=== PATIENT | male | born 1935 | race Hispanic/Latino ===

== ENCOUNTER 2018-12-10 12:30 | Emergency (ER) | payer OTHER ==
[~2018-12-10] VITALS: Ht 165.1 cm; Wt 63.5 kg
== END 2018-12-10 13:02 | disposition home or self-care (01) ==
LOC: ER 12:30
DX: N50.9 Disorder of male genital organs, unspecified (principal); N50.812 Left testicular pain; N50.811 Right testicular pain; S30.22XA Contusion of scrotum and testes, initial encounter; E11.9 Type 2 diabetes mellitus without complications; I25.10 Atherosclerotic heart disease of native coronary artery without angina pectoris; M54.9 Dorsalgia, unspecified; G89.29 Other chronic pain
CPT/HCPCS: 99282

== ENCOUNTER 2018-12-17 16:54 | Emergency (ER) | payer OTHER ==
[~2018-12-17] VITALS: Ht 165.1 cm; Wt 63.5 kg
--- OUTSIDE RECORDS SUMMARY | 2018-12-17 16:56 | XMS REPORT | Continuity of Care Document ---
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 Hg) 124 07/28/2013 [facility] Diastolic (mm Hg) 70 07/28/2013 [facility] Temperature Oral (F) 98.8 F 07/28/2013 [facility] Respitory Rate 20 07/28/2013 [facility] Systolic (mm Hg) 161 07/28/2013 [facility] Temperature Oral (F) 98.0 F 07/28/2013 [facility] Heart Rate 92 07/28/2013 [facility] Diastolic (mm Hg) 73 07/28/2013 [facility] Encounters Location Location Details Encounter Type Encounter Number Reason For Visit Attending Provider ADM Date DC Date Status Source [facility] [id number] _[id number] Saadia Herman 07/28/2013 07/28/2013 [facility] [id number] Yung Guille 03/11/2014 03/11/2014 [facility] Outpatient [id number] DAVID ANTONIO 01/12/2015 [facility] [id number] NURSE VISIT 02/07/2015 Active [facility] [id number] EFE RAMSAY 02/22/2015 Active [facility] [id number] DAVID ANTONIO 03/27/2015 Active [facility] [id number] DAVID ANOTNIO 06/27/2015 Active [facility] [id number] ZHIHAO PACO 09/25/2015 Active [facility] Outpatient [id number] ZHJARONAO PACO 12/26/2015 Active [facility] Outpatient [id number] NURSE VISIT 01/30/2016 Active [facility] [id number] DAVID ANTONIO 03/26/2016 Active [facility] [id number] FLORENTINAO PACO 03/27/2016 Active [facility] [id number] DAVID ANTONIO 05/13/2016 Active [facility] [id number] DAVID ANTONIO 05/27/2016 Active [facility]patient [id number] DAVID ANTONIO 07/02/2016 Active [facility] [id number] DAVID ANTONIO 09/12/2016 [facility] [id number] DAVID ANTONIO 10/01/2016 Active [facility] [id number] DAVID ANTONIO 12/31/2016 Active [facility] [id number] DAVID ANTONIO 01/07/2017 Active [facility] Outpatient [id number] NURSE VISIT 02/19/2017 Active [facility] [id number] DAVID ANTONIO 04/03/2017 Active [facility] [id number] DAVID ANTONIO 05/13/2017 Active [facility] Outpatient [id number] David Antonio 05/13/2017 05/14/2017 [facility] Out[facility] [id number] DAVID ANTONIO 07/08/2017 [facility] Outpatient [id number] David Antonio 07/08/2017 07/09/2017 [facility] [id number] Elkin Aguilar 10/06/2017 10/07/2017 [facility] Phone Message [id number] 10/07/2017 10/09/2017 [facility] Outpatient [id number] DAVID ANTONIO 10/14/2017 Active [facility] Outpatient [id number] David Antonio 10/14/2017 10/15/2017 [facility] Outpatient [id number] DAVID ANTONIO 10/21/2017 Active [facility] Phone Message [id number] 10/21/2017 10/23/2017 [facility] Outpatient [id number] David Antonio 10/21/2017 10/22/2017 [facility] Outpatient [id number] DAVID ANTONIO 11/18/2017 Active [facility] Outpatient [id number] David Antonio 11/18/2017 11/19/2017 [facility] Primary [facility] Phone Message [id number] 01/07/2018 01/09/2018 [facility] Phone Message [id number] 01/21/2018 01/23/2018 [facility] Outpatient [id number] DAVID ANTONIO 02/18/2018 Active [facility] Outpatient [id number] David Antonio 02/18/2018 02/19/2018 [facility] Outpatient [id number] DAVID ANTONIO 06/03/2018 Active [facility] Outpatient [id number] DAVID ANTONIO 08/11/2018 Active [facility] Outpatient [id number] David Antonio 08/11/2018 08/12/2018 [facility] Outpatient [id number] David Antonio 09/02/2018 Active [facility] Outpatient [id number] David Antonio 09/02/2018 09/03/2018 [facility] Outpatient [id number] David Antonio 11/10/2018 Active [facility] Outpatient [id number] David Antonio 11/10/2018 11/11/2018 [facility] Emergency [id number] Elkin Sheikh 12/08/2018 12/08/2018 [facility] Departed Emergency Room [id number] MARILUZ BETANCUR MD 12/10/2018 12/10/2018 [facility] Outpatient [id number] David Antonio 12/14/2018 Active [facility] Outpatient [id number] David Antonio 12/14/2018 12/15/2018 [facility] Procedures Procedure Code Date Perfomer Comments Source Diabetic retinal eye exam<sup>1, 2</sup> [id number] 07/06/2017 Office Visit - 08/10/17office visit 09/14/17 [facility] Diabetic retinal eye exam<sup>1, 2, 3, 4, 5, 6, 7</sup> 636921913 07/06/2017 office visit - 02/11/18office visit - 04/01/18office visit - 04/29/18Office Visit - 08/10/17office visit 09/14/17office visit - 11/05/17office visit - 11/02/17 [facility] Diabetic retinal eye exam<sup>1</sup> 238497571 07/06/2017 Office Visit - 08/10/17 [facility] Diabetic retinal eye exam<sup>1, 2, 3, 4</sup> 579776571 07/06/2017 Office Visit - 08/10/17office visit 09/14/17office visit - 11/05/17office visit - 11/02/17 [facility] Diabetic retinal eye exam<sup>1, 2</sup> 208949934 07/06/2017 Office Visit - 08/10/17office visit 09/14/17 [facility] Diabetic retinal eye exam<sup>1, 2, 3, 4, 5, 6, 7</sup> 126264571 07/06/2017 office visit - 02/11/18office visit - 04/01/18office visit - 04/29/18Office Visit - 08/10/17office visit 09/14/17office visit - 11/05/17office visit - 11/02/17 [facility] Diabetic retinopathy screening<sup>3, 4, 5, 6, 7</sup> 767869707 06/23/2016 office visit - 11/12/16office visit -11/27/16 Dr. Dalal visit - 01/15/17office visit - 03/09/17office visit - 03/30/17 [facility] Diabetic retinopathy screening<sup>8, 9, 10, 11, 12</sup> 328372160 06/23/2016 office visit - 11/12/16office visit -11/27/16 Dr. Diazoffkenzie visit - 01/15/17office visit - 03/09/17office visit - 03/30/17 [facility] Diabetic retinopathy screening<sup>1, 2, 3, 4, 5</sup> 571763425 06/23/2016 office visit - 11/12/16office visit -11/27/16 Dr. Dalal visit - 01/15/17office visit - 03/09/17office visit - 03/30/17 [facility] Diabetic retinopathy screening<sup>2, 3, 4, 5, 6</sup> 194084650 06/23/2016 office visit - 11/12/16office visit -11/27/16 Dr. Dalal visit - 01/15/17office visit - 03/09/17office visit - 03/30/17 [facility] Diabetic retinopathy screening<sup>5, 6, 7, 8, 9</sup> 114826988 06/23/2016 office visit - 11/12/16office visit -11/27/16 Dr. Dalal visit - 01/15/17office visit - 03/09/17office visit - 03/30/17 [facility] Diabetic retinopathy screening<sup>3, 4, 5, 6, 7</sup> 304819275 06/23/2016 office visit - 11/12/16office visit -11/27/16 Dr. Dalal visit - 01/15/17office visit - 03/09/17office visit - 03/30/17 [facility] Diabetic retinopathy screening<sup>8, 9, 10, 11, 12</sup> 941056065 06/23/2016 office visit - 11/12/16office visit -11/27/16 Dr. Dalal visit - 01/15/17office visit - 03/09/17office visit - 03/30/17 [facility] Diabetic foot examination 954918022 06/27/2015 [facility] Diabetic foot examination 843602204 06/27/2015 [facility] Colonoscopy [id number] 09/24/2010 [facility] Colonoscopy [id number] 09/24/2010 [facility] CABG x 4 - Coronary artery bypass grafts x 4 [id number] [facility] Insertion of coronary artery stent [id number] [facility] Appendectomy [id number] [facility] CABG x 4 - Coronary artery bypass grafts x 4 [id number] [facility] Cataract surgery<sup>8</sup> [id number] both [facility] Cholecystectomy<sup>9</sup> 30513991 [facility] Insertion of coronary artery stent [id number] [facility] Cataract surgery<sup>13</sup> [id number] [facility] Cholecystectomy<sup>14</sup> 30764255 [facility] Cataract surgery<sup>6</sup> [id number] [facility] Cholecystectomy<sup>7</sup> 62331062 [facility] Cataract surgery<sup>7</sup> [id number] [facility] Cholecystectomy<sup>8</sup> 71148395 [facility] Cataract surgery<sup>10</sup> [id number] [facility] Cholecystectomy<sup>11</sup> 18722667 [facility] Appendectomy [id number] [facility] Cataract surgery<sup>8</sup> 770043639 both eyes [facility] Cholecystectomy<sup>9</sup> 01737513 1979 [facility] Cataract surgery<sup>13</sup> [id number] both eyes [facility] Cholecystectomy<sup>14</sup> 37642650 1979 [facility] Assessment and Plan No Data Provided for This Section Plan of Care Plan of Care Date Source Discharge Date 12/10/18 1:02pm Disposition HOME, SELF-CARE Condition at Discharge Stable Forms Provided Work/School Excuse Prescriptions See Medication Section Referrals David Antonio ORI MD Address: [address] [place] [address] [id number] Additional Instructions/Education Diagnosis: scrotal hematoma 1. follow up wiht your doctor in 1-2 days without fail 2. return to ed as needed 12/10/2018 [facility] Social History Social History Date Source Social History TypeResponse Substance Abuse Use: None. Alcohol Current, Type Beer.1 Smoking Status Former smoker; Exposure to Tobacco Smoke None; Cigarette Smoking Last 365 Days No; Reg Smoking Cessation Counseling No2 entered on: 12/14/18 [id number] stated 10, year quit 1959 was smoking 2 packs / day 12/14/2018 [facility] Smoking Status Start Date Stop Date Former smoker 12/10/2018 [facility] Social History TypeResponse Substance Abuse Use: None. Alcohol Current, Type Beer.1 Smoking Status Former smoker; Exposure to Tobacco Smoke None; Cigarette Smoking Last 365 Days No; Reg Smoking Cessation Counseling No2 entered on: 12/08/18 [id number] stated 10, year quit 1960 was smoking 2 packs / day 11/10/2018 [facility] Family History No Data Provided for This Section Advance Directives Order Name Results Value Date Source Advance Directives Advance Directives Directive Response Recorded Date/Time Does the patient have an advance directive? No 12/10/18 12:33pm If not on file with [facility] will patient provide a copy? No 12/10/18 12:33pm Do you have a Directive to Physician? No 12/10/18 12:33pm Do you have a Medical Power of Blow Torch Operator? No 12/10/18 12:33pm Do you have an out of hospital Do Not Resuscitate Order? No 12/10/18 12:33pm Do you have any special needs we should be aware of? No 12/10/18 12:33pm Do you have a support person here with you today? Yes 12/10/18 1:16pm Did patient receive Notice of Privacy Practices? Yes 12/10/18 1:16pm Did patient receive patient rights and responsibilities? Yes 12/10/18 1:16pm 12/10/2018 [facility] Functional Status No Data Provided for This Section
--- OUTSIDE RECORDS SUMMARY | 2018-12-17 16:56 | XMS REPORT | Summary of Care ---
Author Author [facility] Organization [facility] Address Unknown Phone Unavailable Encounter DG Ordonez(TOMEKA) [id number] Date(s): 05/13/17 - 05/13/17 [facility] [address] [facility] [address], [address] [place], [place] [address]- [phone] Discharge Disposition: Home or Self Care Attending Physician: David Beverly MD Vital Signs Most recent to 1 oldest [Reference Range]: Height 165.1 cm (05/13/17 8:52 AM) Temperature Oral 97.8 DegF [96.4-99.1 DegF] (05/13/17 8:52 AM) Blood Pressure 140/76 mmHg [90-140/60-90 mmHg] (05/13/17 8:52 AM) Respiratory Rate 14 BRMIN [14-20 BRMIN] (05/13/17 8:52 AM) Peripheral Pulse 84 bpm Rate [60-100 bpm] (05/13/17 8:52 AM) Weight 66.08 kg (05/13/17 8:52 AM) Body Mass Index 24.24 m2 (05/13/17 8:52 AM) Problem List Condition Effective Dates Status Health Status Informant Benign essential Active hypertension(Confirm ed)1 Benign prostatic Active hyperplasia(Confirme d)2 Chronic obstructive Active lung disease(Confirmed)3 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 2Data migrated from [employer] on 10/21/14. 3Data migrated from [employer] on 10/21/14. 4Data migrated from [employer] on 10/21/14. 5Data migrated from [employer] on 12/09/14. 6Data migrated from [employer] on 10/21/14. 7Data migrated from [employer] on 10/21/14. 8Data migrated from [employer] on 10/21/14. 9Data migrated from [employer] on 10/21/14. 10Data migrated from [employer] on 10/21/14. 11Data migrated from [employer] on 10/21/14. Allergies, Adverse Reactions, Alerts Substance Reaction Severity Status NKDA Active Medications azithromycin 250 mg oral tablet See Instructions, Take 2 tablets by mouth the first day then 1 tablet by mouth d aily on days 2-5., X 5 day, # 6 tab, 0 Refill(s), Pharmacy: [facility]/pharmacy #[id number] Start Date: 05/13/17 Stop Date: 05/18/17 Status: Ordered TamiFLU 75 mg oral capsule 75 mg, PO, Q12H, X 5 day, # 10 cap, 0 Refill(s), Pharmacy: [facility]/pharmacy #[id number] Start Date: 05/13/17 Stop Date: 05/18/17 Status: Ordered Results No data available for this section Immunizations Given and Recorded Vaccine Date Status Refusal Reason influenza virus vaccine, inactivated1 02/19/17 Given influenza virus vaccine, inactivated 01/30/16 Given influenza virus vaccine, inactivated 02/07/15 Given influenza virus vaccine, inactivated2 02/02/14 Given influenza virus vaccine, inactivated3 02/17/13 Given Hx influenza vaccine-unspecified4 02/02/14 Given 1Result Comment: Patient waited 15 minutes, no allergic reaction. 2Result Comment: fluzone high dose [[id number]]. Migrated from OBS ; Data migrated from [employer] on 06/26/2015. 3Result Comment: fluzone (>3 yrs.) [[id number]]. Migrated from OBS ; Data migrated from [employer] on 06/26/2015. 4Result Comment: done. Migrated from OBS ; Data migrated from [employer] on 06/26/2015. Procedures Procedure Date Related Diagnosis Body Site Diabetic retinopathy screening1, 2, 3, 4, 5 06/23/16 Diabetic foot examination 06/27/15 Colonoscopy 09/24/10 Appendectomy CABG x 4 - Coronary artery bypass grafts x 4 Cataract surgery6 Cholecystectomy7 Insertion of coronary artery stent 1office visit - 11/12/16 2office visit -11/27/16 Dr. Diaz 3office visit - 01/15/17 4office visit - 03/09/17 5office visit - 03/30/17 6both eyes [id number] Social History Social History Type Response Substance Abuse Use: None. Alcohol Current, Type Beer.1 Smoking Status Former smoker; Exposure to Tobacco Smoke None; Cigarette Smoking Last 365 Days No; Reg Smoking Cessation Counseling No2 1socially 2age stated 8, year quit 1960 was smoking 2 packs / day Assessment and Plan No data available for this section
--- OUTSIDE RECORDS SUMMARY | 2018-12-17 16:57 | XMS REPORT | Summary of Care ---
Author Author [facility] Organization [facility] Address Unknown Phone Unavailable Encounter DG Ordonez(FIN) [id number] Date(s): 12/14/18 - 12/14/18 [facility] [address] [place] [address]- Discharge Disposition: Home or Self Care Attending Physician: David Beverly MD Vital Signs Most recent to 1 oldest [Reference Range]: Height 165.1 cm (12/14/18 10:40 AM) Temperature Oral 97.9 DegF [96.4-99.1 DegF] (12/14/18 10:40 AM) Blood Pressure 118/63 mmHg [90-140/60-90 mmHg] (12/14/18 10:40 AM) Respiratory Rate 14 BRMIN [14-20 BRMIN] (12/14/18 10:40 AM) Peripheral Pulse 62 bpm Rate [60-100 bpm] (12/14/18 10:40 AM) Weight 64.716 kg (12/14/18 10:40 AM) Body Mass Index 23.74 m2 (12/14/18 10:40 AM) Problem List Condition Effective Dates Status Health Status Informant Benign essential Active hypertension(Confirm ed)1 Benign prostatic Active hyperplasia(Confirme d)2 Chronic obstructive Active lung disease(Confirmed)3 Coronary 05/25/59 Active arteriosclerosis(Con firmed)4 Coronary artery Resolved bypass grafts x 45 DM (diabetes Resolved mellitus)(Confirmed) Diverticular disease Active of colon6 Hearing Active impairment(Confirmed ) History of - Active myocardial infarction(Confirmed )7 S/P CABG x Active 4(Confirmed) HLD Resolved (hyperlipidemia)(Con firmed) HTN Resolved (hypertension)(Confi rmed) Internal Active hemorrhoids8 Macrocytic 06/30/13 Active anemia(Confirmed)9 Macular Active edema(Confirmed) [place] - Myocardial Resolved infarction(Confirmed ) Peripheral nerve Active disease(Confirmed)10 DM Active retinopathy(Confirme d) Right bundle branch Active block(Confirmed)11 Bruise(Confirmed) Active 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 2Data migrated from [employer] [...] [employer] on 10/21/14. Allergies, Adverse Reactions, Alerts No Known Medication Allergies Substance Reaction Severity Status NKFA Active Medications No Known Medications Results No data available for this section Immunizations Given and Recorded Vaccine Date Status Refusal Reason influenza virus vaccine, inactivated1 02/18/18 Given influenza virus vaccine, inactivated2 02/19/17 Given influenza virus vaccine, inactivated 01/30/16 Given influenza virus vaccine, inactivated 02/07/15 Given influenza virus vaccine, inactivated3 02/02/14 Given influenza virus vaccine, inactivated4 02/17/13 Given Hx influenza vaccine-unspecified5 02/02/14 Given 1Result Comment: Patient waited 15 minutes, no allergic reaction noted. 2Result Comment: Patient waited 15 minutes, no allergic reaction. 3Result Comment: fluzone high dose [[id number]]. Migrated from OBS ; Data migrated from [employer] on 06/26/2015. 4Result Comment: fluzone (>3 yrs.) [[id number]]. Migrated from OBS ; Data migrated from [employer] on 06/26/2015. 5Result Comment: done. Migrated from OBS ; Data migrated from [employer] on 06/26/2015. Procedures Procedure Date Related Diagnosis Body Site Status Diabetic retinal eye exam1, 2, 3, 4, 5, 6, 7 07/06/17 Completed Diabetic retinopathy screening8, 9, 10, 11, 06/23/16 Completed 12 Diabetic foot examination 06/27/15 Completed Colonoscopy 09/24/10 Completed Appendectomy Completed CABG x 4 - Coronary artery bypass grafts x 4 Completed Cataract [id number] Completed [id number] Completed Insertion of coronary artery stent Completed 1office visit - 02/11/18 2office visit - 04/01/18 3office visit - 04/29/18 4Office Visit - 08/10/17 5office visit 09/14/17 6office visit - 11/05/17 7office visit - 11/02/17 8office visit - 11/12/16 9office visit -11/27/16 Dr. Diaz 10office visit - 01/15/17 11office visit - 03/09/17 12office visit - 03/30/17 13both eyes [id number] Social History Social History Type Response Substance Abuse Use: None. Alcohol Current, Type Beer.1 Smoking Status Former smoker; Exposure to Tobacco Smoke None; Cigarette Smoking Last 365 Days No; Reg Smoking Cessation Counseling No2 entered on: 12/14/18 1socially 2age stated 8, year quit 1959 was smoking 2 packs / day Assessment and Plan No data available for this section
--- OUTSIDE RECORDS SUMMARY | 2018-12-17 16:57 | XMS REPORT | Summary of Care ---
Author Author [facility] Primary [facility] Organization [facility] Address Unknown Phone Unavailable Encounter HQ Nicoletter_yumiko(FIN) [id number] Date(s): 10/14/17 - 10/14/17 [facility] [address], [address] [place] [address]- [phone] Discharge Disposition: Home or Self Care Attending Physician: David Beverly MD Vital Signs Most recent to 1 oldest [Reference Range]: Height 165.1 cm (10/14/17 10:51 AM) Temperature Oral 98.5 DegF [96.4-99.1 DegF] (10/14/17 10:51 AM) Blood Pressure 154/74 mmHg [90-140/60-90 mmHg] *HI* (10/14/17 10:51 AM) Respiratory Rate 14 BRMIN [14-20 BRMIN] (10/14/17 10:51 AM) Peripheral Pulse 85 bpm Rate [60-100 bpm] (10/14/17 10:51 AM) Weight 65 kg (10/14/17 10:51 AM) Body Mass Index 23.85 m2 (10/14/17 10:51 AM) Problem List Condition Effective Dates Status Health Status Informant Benign essential Active hypertension(Confirm ed)1 Benign prostatic Active hyperplasia(Confirme d)2 Chronic obstructive Active lung disease(Confirmed)3 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/25/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 arteriosclerosis(Con firmed)4 Coronary artery Resolved bypass grafts x 45 Diverticular disease Active of colon6 History of - Active myocardial infarction(Confirmed )7 S/P CABG x Active 4(Confirmed) Internal Active hemorrhoids8 Macrocytic 06/30/13 Active anemia(Confirmed)9 Macular Active edema(Confirmed) [place] - Myocardial Resolved infarction(Confirmed ) Peripheral nerve Active disease(Confirmed)10 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 2Data migrated from GE [...] Substance Reaction Severity Status NKDA Active Medications No Known Medications Results No [...] allergic reaction. 2Result Comment: fluzone high dose [[id number]]. Migrated from OBS ; Data migrated from [employer] Cent[employer] on 06/26/2015. 3Result Comment: fluzone (>3 yrs.) [[id number]]. Migrated from OBS ; Data migrated from [employer] Cent[employer] on 06/26/2015. 4Result Comment: done. Migrated from OBS ; Data migrated from [employer] Centric[employer] on 06/26/2015. Procedures Procedure Date Related Diagnosis Body Site Status Diabetic retinal eye exam1, 2 07/06/17 Completed Diabetic retinopathy screening3, 4, 5, 6, 7 06/23/16 Completed Diabetic foot examination 06/27/15 Completed Colonoscopy 09/24/10 Completed Appendectomy Completed CABG x 4 - Coronary artery bypass grafts x 4 Completed Cataract surgery8 Completed Cholecystectomy9 Completed Insertion of coronary artery stent Completed 1Office Visit - 08/10/17 2office visit 09/14/17 3office visit - 11/12/16 4office visit -11/27/16 Dr. Diaz 5office visit - 01/15/17 6office visit - 03/09/17 7office visit - 03/30/17 8both eyes [id number] Social History Social History Type Response Substance Abuse Use: None. Alcohol Current, Type Beer.1 Smoking Status Former smoker; Exposure to Tobacco Smoke None; Cigarette Smoking Last 365 Days No; Reg Smoking Cessation Counseling No2 entered on: 10/14/17 1socially 2age stated 8, year quit 1959 was smoking 2 packs / day Assessment and Plan No data available for this section
--- OUTSIDE RECORDS SUMMARY | 2018-12-17 16:57 | XMS REPORT | Summary of Care ---
Author Author [facility] Organization [facility] Address Unknown Phone Unavailable Encounter HQ Mery(FIN) [id number] Date(s): 11/18/17 - 11/18/17 [facility] [address], [address] [place], [place] [address]- [phone] Discharge Disposition: Home or Self Care Attending Physician: David Beverly MD Vital Signs Most recent to 1 oldest [Reference Range]: Height 165.1 cm (11/18/17 10:55 AM) Temperature Oral 97.5 DegF [96.4-99.1 DegF] (11/18/17 10:55 AM) Blood Pressure 125/69 mmHg [90-140/60-90 mmHg] (11/18/17 10:55 AM) Respiratory Rate 14 BRMIN [14-20 BRMIN] (11/18/17 10:55 AM) Peripheral Pulse 86 bpm Rate [60-100 bpm] (11/18/17 10:55 AM) Weight 65.455 kg (11/18/17 10:55 AM) Body Mass Index 24.01 m2 (11/18/17 10:55 AM) Problem List Condition Effective Dates Status [...] Macrocytic 06/30/13 Active anemia(Confirmed)9 Macular Active edema(Confirmed) [place] - Myocardial Resolved infarction(Confirmed ) Peripheral nerve Active disease(Confirmed)10 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 2Data migrated from GE [...] allergic reaction. 2Result Comment: fluzone high dose [[id number]]. Migrated from OBS ; Data migrated from GE Centricity on 06/26/2015. 3Result Comment: fluzone (>3 yrs.) [[id number]]. Migrated from OBS ; Data migrated from GE Centricity on 06/26/2015. 4Result Comment: done. Migrated from OBS ; Data migrated from GE Centricity on 06/26/2015. Procedures Procedure Date Related Diagnosis Body Site Status Diabetic retinal eye exam1, 2, 3, 4 07/06/17 Completed Diabetic retinopathy screening5, 6, 7, 8, 9 06/23/16 Completed Diabetic foot examination 06/27/15 Completed Colonoscopy 09/24/10 Completed Appendectomy Completed CABG x 4 - Coronary artery bypass grafts x 4 Completed Cataract jxkzxbe81 Completed Lndjtbwkrvbsyac03 Completed Insertion of coronary artery stent Completed 1Office Visit - 08/10/17 2office visit 09/14/17 3office visit - 11/05/17 4office visit - 11/02/17 5office visit - 11/12/16 6office visit -11/27/16 Dr. Diaz 7office visit - 01/15/17 8office visit - 03/09/17 9office visit - 03/30/17 10both eyes [id number] Social History Social History Type Response Substance Abuse Use: None. Alcohol Current, Type Beer.1 Smoking Status Former smoker; Exposure to Tobacco Smoke None; Cigarette Smoking Last 365 Days No; Reg Smoking Cessation Counseling No2 entered on: 11/18/17 1socially 2age stated 8, year quit 1959 was smoking 2 packs / day Assessment and Plan No data available for this section
--- OUTSIDE RECORDS SUMMARY | 2018-12-17 16:57 | XMS REPORT | Summary of Care ---
Author Author [facility] Primary Care [facility] Organization [facility] Address Unknown Phone Unavailable Encounter HQ Halimantr_alimary kate(FIN) [id number] Date(s): 10/21/17 - 10/22/17 [facility] [address], [address] [place] [address]- [phone] Vital Signs No data available for this section Problem List Condition Effective Dates Status Health Status Informant Benign essential Active hypertension(Confirm ed)1 Benign prostatic Active hyperplasia(Confirme d)2 Chronic obstructive Active lung disease(Confirmed)3 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 [...] Reaction Severity Status NKDA Active Medications No data available for this section Results No data available for this section [...] allergic reaction. 2Result Comment: fluzone high dose [[id number]]. Migrated from OBS ; Data migrated from [employer] on 06/26/2015. 3Result Comment: fluzone (>3 yrs.) [[id number]]. Migrated from OBS ; Data migrated from [employer] on 06/26/2015. 4Result Comment: done. Migrated from OBS ; Data migrated from [employer] on 06/26/2015. Procedures Procedure Date Related Diagnosis [...] 03/09/17 7office visit - 03/30/17 8both eyes [id number] Social History Social History Type Response Substance Abuse Use: None. Alcohol Current, Type Beer.1 Smoking Status Former smoker; Exposure to Tobacco Smoke None; Cigarette Smoking Last 365 Days No; Reg Smoking Cessation Counseling No2 entered on: 10/21/17 1socially 2age stated 8, year quit 1960 was smoking 2 packs / day Assessment and Plan No data available for this section
--- OUTSIDE RECORDS SUMMARY | 2018-12-17 16:57 | XMS REPORT | Summary of Care ---
Author Author [facility] Primary Care 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)4 Coronary artery Resolved bypass grafts x 45 Diverticular disease Active of colon6 Hearing Active impairment(Confirmed ) History of - Active myocardial infarction(Confirmed )7 S/P CABG x Active 4(Confirmed) Internal Active hemorrhoids8 Macrocytic 06/30/13 Active anemia(Confirmed)9 Macular Active edema(Confirmed) MD - Myocardial Resolved infarction(Confirmed ) Peripheral nerve [...] Substance Reaction Severity Status NKDA Active Medications metFORMIN 500 mg oral tablet 2 tabs QAM and 1 tab QPM, PO, BID, # 270 tab, 1 Refill(s), Pharmacy: [facility]/pharmac y #[id number] Start Date: 01/07/18 Stop Date: 07/05/18 Status: Completed metFORMIN 500 mg oral tablet See Instructions, # 270 tab, Refill(s) 1, TAKE 2 TABLETS BY MOUTH IN THE MORNING AND 1 IN THE EVENING, Pharmacy: [facility]/pharmacy #[id number] Start Date: 07/05/18 Status: Ordered Results No data available for [...] allergic reaction. 3Result Comment: fluzone high dose [ceh160]. Migrated from OBS ; Data migrated from [employer] on 06/26/2015. 4Result Comment: fluzone (>3 yrs.) [[id number]]. Migrated from OBS ; Data migrated from [employer] on 06/26/2015. 5Result Comment: done. Migrated from OBS ; Data migrated from [employer] on 06/26/2015. Procedures Procedure Date Related Diagnosis Body Site Status Diabetic retinal eye exam1, 2, 3, 4, 5, 6, 7 07/06/17 Completed Diabetic retinopathy screening8, 9, 10, 11, 06/23/16 Completed 12 Diabetic foot examination 06/27/15 Completed Colonoscopy 09/24/10 Completed Appendectomy Completed CABG x 4 - Coronary artery bypass grafts x 4 Completed Cataract wdoftkq97 Completed Ihoqdycgxowfeos93 Completed Insertion of coronary artery stent Completed 1office visit - 02/11/18 2office visit - 04/01/18 3office visit - 04/29/18 4Office Visit - 08/10/17 5office visit 09/14/17 6office visit - 11/05/17 7office visit - 11/02/17 8office visit - 11/12/16 9office visit -11/27/16 Dr. Diaz 10office visit - 01/15/17 11office visit - 03/09/17 12office visit - 03/30/17 13both eyes [id number] Social History Social History Type Response Substance Abuse Use: None. Alcohol Current, Type Beer.1 Smoking Status Former smoker; Exposure to Tobacco Smoke None; Cigarette Smoking Last 365 Days No; Reg Smoking Cessation Counseling No2 entered on: 06/03/18 1socially 2age stated 8, year quit 1960 was smoking 2 packs / day Assessment and Plan No data available for this section
--- OUTSIDE RECORDS SUMMARY | 2018-12-17 16:57 | XMS REPORT | Summary of Care ---
Author Author [facility] Organization [facility] Address Unknown Phone Unavailable Encounter HQ Nicoletter_yumiko(FIN) [id number] Date(s): 11/10/18 - 11/10/18 [facility] [address] [place] [address]- Discharge Disposition: Home or Self Care Attending Physician: David Beverly MD Vital Signs Most recent to 1 oldest [Reference Range]: Height 165.1 cm (11/10/18 9:56 AM) Temperature Oral 97.6 DegF [96.4-99.1 DegF] (11/10/18 9:56 AM) Blood Pressure 173/69 mmHg [90-140/60-90 mmHg] *HI* (11/10/18 9:56 AM) Respiratory Rate 14 BRMIN [14-20 BRMIN] (11/10/18 9:56 AM) Peripheral Pulse 60 bpm Rate [60-100 bpm] (11/10/18 9:56 AM) Weight 63.693 kg (11/10/18 9:56 AM) Body Mass Index 23.37 m2 (11/10/18 9:56 AM) Problem List Condition Effective Dates Status [...] Macrocytic 06/30/13 Active anemia(Confirmed)9 Macular Active edema(Confirmed) [place] - Myocardial Resolved infarction(Confirmed ) Peripheral nerve [...] allergic reaction. 3Result Comment: fluzone high dose [[id number]]. Migrated from OBS ; Data migrated from GE Centricity on 06/26/2015. 4Result Comment: fluzone (>3 yrs.) [[id number]]. Migrated from OBS ; Data migrated from [...] artery bypass grafts x 4 Completed Cataract eiscgxg19 Completed Sleziewhliwmmxb36 Completed Insertion of coronary artery stent Completed 1office visit - 02/11/18 2office visit - 04/01/18 3office visit - 04/29/18 4Office Visit - 08/10/17 5office visit 09/14/17 6office visit - 11/05/17 7office visit - 11/02/17 8office visit - 11/12/16 9office visit -11/27/16 Dr. Diaz 10office visit - 01/15/17 11office visit - 03/09/17 12office visit - 03/30/17 13both eyes [id number] Social History Social History Type Response Substance Abuse Use: None. Alcohol Current, Type Beer.1 Smoking Status Former smoker; Exposure to Tobacco Smoke None; Cigarette Smoking Last 365 Days No; Reg Smoking Cessation Counseling No2 entered on: 11/10/18 1socially 2age stated 8, year quit 1960 was smoking 2 packs / day Assessment and Plan No data available for this section
--- OUTSIDE RECORDS SUMMARY | 2018-12-17 16:57 | XMS REPORT | Summary of Care ---
Author Author [facility] Primary [facility] Organization [facility] Address Unknown Phone Unavailable Encounter HQ Swapna_yumiko(FIN) [id number] Date(s): 07/08/17 - 07/08/17 [facility] [address], [address] [place] [address]- [phone] Discharge Disposition: Home or Self Care Attending Physician: David Beverly MD Vital Signs Most recent to 1 oldest [Reference Range]: Height 165.1 cm (07/08/17 9:48 AM) Temperature Oral 98.0 DegF [96.4-99.1 DegF] (07/08/17 9:48 AM) Blood Pressure 125/62 mmHg [90-140/60-90 mmHg] (07/08/17 9:48 AM) Respiratory Rate 14 BRMIN [14-20 BRMIN] (07/08/17 9:48 AM) Peripheral Pulse 82 bpm Rate [60-100 bpm] (07/08/17 9:48 AM) Weight 65.568 kg (07/08/17 9:48 AM) Body Mass Index 24.05 m2 (07/08/17 9:48 AM) Problem List Condition Effective Dates Status [...] Macrocytic 06/30/13 Active anemia(Confirmed)9 Macular Active edema(Confirmed) CT - Myocardial Resolved infarction(Confirmed ) Peripheral nerve Active disease(Confirmed)10 DM Active retinopathy(Confirme d) Right bundle branch Active block(Confirmed)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 2Data migrated from GE Centricity [...] Substance Reaction Severity Status NKDA Active Medications lidocaine-sodium bicarbonate 0.9%-0.84% injectable solution 0 Refill(s) Start Date: 07/08/17 Status: Ordered sodium chloride, hypertonic, ophthalmic 5% solution 1 drop, RIGHT EYE, Daily Start Date: 07/08/17 Status: Ordered Results No data available for [...] allergic reaction. 2Result Comment: fluzone high dose [rts908]. Migrated from OBS ; Data migrated from GE Centricity on 06/26/2015. 3Result Comment: fluzone (>3 yrs.) [[id number]]. Migrated from OBS ; Data migrated from [...] 03/09/17 7office visit - 03/30/17 8both eyes [id number] Social History Social History Type Response Substance Abuse Use: None. Alcohol Current, Type Beer.1 Smoking Status Former smoker; Exposure to Tobacco Smoke None; Cigarette Smoking Last 365 Days No; Reg Smoking Cessation Counseling No2 entered on: 10/06/17 1socially 2age stated 8, year quit 1960 was smoking 2 packs / day Assessment and Plan No data available for this section
--- OUTSIDE RECORDS SUMMARY | 2018-12-17 16:57 | XMS REPORT | Summary of Care ---
Author Author [facility] Organization [facility] Address Unknown Phone Unavailable Encounter HQ Mery(FIN) [id number] Date(s): 02/18/18 - 02/18/18 [facility] [address] [place] [address] [phone] Discharge Disposition: Home or Self Care Attending Physician: David Beverly MD Vital Signs Most recent to 1 oldest [Reference Range]: Height 165.1 cm (02/18/18 10:25 AM) Temperature Oral 97.5 DegF [96.4-99.1 DegF] (02/18/18 10:25 AM) Blood Pressure 127/59 mmHg [90-140/60-90 mmHg] (02/18/18 10:25 AM) Respiratory Rate 14 BRMIN [14-20 BRMIN] (02/18/18 10:25 AM) Peripheral Pulse 73 bpm Rate [60-100 bpm] (02/18/18 10:25 AM) Weight 65.17 kg (02/18/18 10:25 AM) Body Mass Index 23.91 m2 (02/18/18 10:25 AM) Problem List Condition Effective Dates Status [...] Substance Reaction Severity Status NKDA Active Medications Accu-Chek Compact Plus Drum Blood Glucose Test Strips 1 ea, MISC, Daily, Use for blood glucose monitoring., # 100 ea, Not insulin depe ndent, Does not use insulin pump, Last DM eval date 11/18/17, 6 Refill(s) Start Date: 02/02/18 Status: Ordered Results No data available for [...] allergic reaction. 3Result Comment: fluzone high dose [[id number]]. Migrated from OBS ; Data migrated from GE Centricity on 06/26/2015. 4Result Comment: fluzone (>3 yrs.) [[id number]]. Migrated from OBS ; Data migrated from [...] artery bypass grafts x 4 Completed Cataract seasdxc62 Completed Wakbmybkjdrotbh84 Completed Insertion of coronary artery stent Completed 1office visit - 02/11/18 2office visit - 04/01/18 3office visit - 04/29/18 4Office Visit - 08/10/17 5office visit 09/14/17 6office visit - 11/05/17 7office visit - 11/02/17 8office visit - 11/12/16 9office visit -11/27/16 Dr. Diaz 10office visit - 01/15/17 11office visit - 03/09/17 12office visit - 03/30/17 13both eyes [id number] Social History Social History Type Response Substance Abuse Use: None. Alcohol Current, Type Beer.1 Smoking Status Former smoker; Exposure to Tobacco Smoke None; Cigarette Smoking Last 365 Days No; Reg Smoking Cessation Counseling No2 entered on: 09/02/18 1socially 2age stated 8, year quit 1960 was smoking 2 packs / day Assessment and Plan No data available for this section
--- OUTSIDE RECORDS SUMMARY | 2018-12-17 16:57 | XMS REPORT | Summary of Care ---
Author Author [facility] Primary [facility] Organization [facility] Address Unknown Phone Unavailable Encounter HQ Mery(FIN) [id number] Date(s): 07/08/17 - 07/08/17 [facility] [address], [address] [place] [address] [phone] Discharge Disposition: Home or Self Care Attending [...] Macrocytic 06/30/13 Active anemia(Confirmed)9 Macular Active edema(Confirmed) [place] - Myocardial Resolved infarction(Confirmed ) Peripheral nerve Active disease(Confirmed)10 DM Active retinopathy(Confirme d) Right bundle branch Active block(Confirmed)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 2Data migrated from GE Centricity [...] allergic reaction. 2Result Comment: fluzone high dose [[id number]]. Migrated from OBS ; Data migrated from GE Centricity on 06/26/2015. 3Result Comment: fluzone (>3 yrs.) [[id number]]. Migrated from OBS ; Data migrated from GE Centricity on 06/26/2015. 4Result Comment: done. Migrated from OBS ; Data migrated from GE Centricity on 06/26/2015. Procedures Procedure Date Related Diagnosis Body Site Status Diabetic retinal eye exam1 07/06/17 Completed Diabetic retinopathy screening2, 3, 4, 5, 6 06/23/16 Completed Diabetic foot examination 06/27/15 Completed Colonoscopy 09/24/10 Completed Appendectomy Completed CABG x 4 - Coronary artery bypass grafts x 4 Completed Cataract surgery7 Completed Cholecystectomy8 Completed Insertion of coronary artery stent Completed 1Office Visit - 08/10/17 2office visit - 11/12/16 3office visit -11/27/16 Dr. Diza 4office visit - 01/15/17 5office visit - 03/09/17 6office visit - 03/30/17 7both eyes [id number] Social History Social History Type Response Substance Abuse Use: None. Alcohol Current, Type Beer.1 Smoking Status Former smoker; Exposure to Tobacco Smoke None; Cigarette Smoking Last 365 Days No; Reg Smoking Cessation Counseling No2 entered on: 07/08/17 1socially 2age stated 8, year quit 1960 was smoking 2 packs / day Assessment and Plan No data available for this section
--- OUTSIDE RECORDS SUMMARY | 2018-12-17 16:57 | XMS REPORT | Summary of Care ---
Author Author [facility] Organization [facility] Address Unknown Phone Unavailable Encounter HQ Mery(FIN) [id number] Date(s): 12/08/18 - 12/08/18 [facility] [address] [place] [address]- Encounter Diagnosis Scrotal edema (Discharge Diagnosis) - 12/08/18 Discharge Disposition: Home or Self Care Attending Physician: Elkin Sheikh MD Vital Signs Most recent to 1 2 oldest [Reference Range]: Height 165.1 cm (12/08/18 10:56 AM) Temperature Oral 98.0 DegF 98.5 DegF [96.4-99.1 DegF] (12/08/18 3:01 PM) (12/08/18 10:56 AM) Blood Pressure 155/68 mmHg 162/75 mmHg [90-140/60-90 mmHg] *HI* *HI* (12/08/18 3:01 PM) (12/08/18 10:56 AM) Respiratory Rate 16 BRMIN 18 BRMIN [14-20 BRMIN] (12/08/18 3:01 PM) (12/08/18 10:56 AM) Peripheral Pulse 85 bpm 69 bpm Rate [60-100 bpm] (12/08/18 3:01 PM) (12/08/18 10:56 AM) Weight 63.636 kg (12/08/18 10:56 AM) Body Mass Index 23.35 m2 (12/08/18 10:56 AM) Problem List Condition Effective Dates Status [...] Macrocytic 06/30/13 Active anemia(Confirmed)9 Macular Active edema(Confirmed) [place] - Myocardial Resolved infarction(Confirmed ) Peripheral nerve [...] Reaction Severity Status NKFA Active Medications No data available for this section Results Most recent to 1 oldest [Reference Range]: UA Bili [Negative] Negative *NA* (12/08/18 11:34 AM) UA Blood [Negative] Negative (12/08/18 11:34 AM) UA Color Ltyellow *NA* (12/08/18 11:34 AM) UA Glucose [Negative Negative mg/dL mg/dL] *NA* (12/08/18 11:34 AM) UA Ketones [Negative Negative mg/dL mg/dL] *NA* (12/08/18 11:34 AM) UA Leuk Est Negative [Negative] (12/08/18 11:34 AM) UA Nitrite Negative [Negative] (12/08/18 11:34 AM) UA pH [5.0-8.0] 7.0 (12/08/18 11:34 AM) UA Protein [Negative Negative mg/dL mg/dL] (12/08/18 11:34 AM) UA RBC [0-2 /HPF] 3 /HPF *HI* (12/08/18 11:34 AM) UA Spec Grav 1.006 [<=1.030] (12/08/18 11:34 AM) UA Sq Epi None Seen *NA* (12/08/18 11:34 AM) UA Turbidity [Clear] Clear (12/08/18 11:34 AM) UA Urobilinogen <=1.0 mg/dL [0.1-1.0 mg/dL] *NA* (12/08/18 11:34 AM) Immunizations Given and Recorded Vaccine Date Status [...] allergic reaction. 3Result Comment: fluzone high dose [[id number]]. Migrated from OBS ; Data migrated from [employer] on 06/26/2015. 4Result Comment: fluzone (>3 yrs.) [[id number]]. Migrated from OBS ; Data migrated from [employer] on 06/26/2015. 5Result Comment: done. Migrated from OBS ; Data migrated from [employer] on 06/26/2015. Procedures Procedure Date Related Diagnosis Body Site Status Diabetic retinal eye exam1, 2, 3, 4, 5, 6, 7 07/06/17 Completed Diabetic retinopathy screening8, 9, 10, 11, 06/23/16 Completed 12 Diabetic foot examination 06/27/15 Completed Colonoscopy 09/24/10 Completed Appendectomy Completed CABG x 4 - Coronary artery bypass grafts x 4 Completed Cataract bjylezy30 Completed Hswhuidawntblxt73 Completed Insertion of coronary artery stent Completed 1office visit - 02/11/18 2office visit - 04/01/18 3office visit - 04/29/18 4Office Visit - 08/10/17 5office visit 09/14/17 6office visit - 11/05/17 7office visit - 11/02/17 8office visit - 11/12/16 9office visit -11/27/16 Dr. Diaz 10office visit - 01/15/17 11office visit - 03/09/17 12office visit - 03/30/17 13both eyes [id number] Social History Social History Type Response Substance Abuse Use: None. Alcohol Current, Type Beer.1 Smoking Status Former smoker; Exposure to Tobacco Smoke None; Cigarette Smoking Last 365 Days No; Reg Smoking Cessation Counseling No2 entered on: 12/08/18 1socially 2age stated 8, year quit 1960 was smoking 2 packs / day Assessment and Plan No data available for this section
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
--- OUTSIDE RECORDS SUMMARY | 2018-12-17 16:57 | XMS REPORT | Summary of Care ---
Author Author [facility] Organization [facility] Address Unknown Phone Unavailable Encounter HQ Mery(FIN) [id number] Date(s): 09/02/18 - 09/02/18 [facility] [address] [facility] [address] [place] [address]- [phone] Discharge Disposition: Home or Self Care Attending Physician: David Beverly MD Vital Signs Most recent to 1 oldest [Reference Range]: Height 165.1 cm (09/02/18 10:54 AM) Temperature Oral 97.8 DegF [96.4-99.1 DegF] (09/02/18 10:54 AM) Blood Pressure 129/59 mmHg [90-140/60-90 mmHg] (09/02/18 10:54 AM) Respiratory Rate 14 BRMIN [14-20 BRMIN] (09/02/18 10:54 AM) Peripheral Pulse 54 bpm Rate [60-100 bpm] *LOW* (09/02/18 10:54 AM) Weight 67.386 kg (09/02/18 10:54 AM) Body Mass Index 24.72 m2 (09/02/18 10:54 AM) Problem List Condition Effective Dates Status [...] Macrocytic 06/30/13 Active anemia(Confirmed)9 Macular Active edema(Confirmed) [place] - Myocardial Resolved infarction(Confirmed ) Peripheral nerve [...] Substance Reaction Severity Status NKDA Active Medications atenolol 25 mg oral tablet 25 mg=1 tab, PO, Daily, 0 Refill(s) Start Date: 09/02/18 Status: Ordered Calcium, Magnesium and Zinc Calcium, Magnesium and Zinc, 1 tab, PO, Daily, Refill(s) 0 Start Date: 09/02/18 Status: Ordered Centrum Silver oral tablet 1 tab, PO, Daily Start Date: 09/02/18 Status: Ordered lisinopril 20 mg oral tablet 40 mg=2 tab, PO, Daily, 0 Refill(s) Start Date: 09/02/18 Stop Date: 09/02/18 Status: Discontinued lisinopril 40 mg oral tablet 40 mg=1 tab, PO, Daily, dose change, # 90 tab, 1 Refill(s), Pharmacy: [facility] #[id number] Start Date: 09/02/18 Status: Ordered Results No data available for [...] allergic reaction. 3Result Comment: fluzone high dose [[id number]]. Migrated from OBS ; Data migrated from [employer] on 06/26/2015. 4Result Comment: fluzone (>3 yrs.) [[id number]]. Migrated from OBS ; Data migrated from [employer] on 06/26/2015. 5Result Comment: done. Migrated from OBS ; Data migrated from [employer] on 06/26/2015. Procedures Procedure Date Related Diagnosis Body Site Status Diabetic retinal eye exam1, 2, 3, 4, 5, 6, 7 07/06/17 Completed Diabetic retinopathy screening8, 9, 10, 11, 06/23/16 Completed 12 Diabetic foot examination 06/27/15 Completed Colonoscopy 09/24/10 Completed Appendectomy Completed CABG x 4 - Coronary artery bypass grafts x 4 Completed Cataract [id number] Completed [id number] Completed Insertion of coronary artery stent Completed 1office visit - 02/11/18 2office visit - 04/01/18 3office visit - 04/29/18 4Office Visit - 08/10/17 5office visit 09/14/17 6office visit - 11/05/17 7office visit - 11/02/17 8office visit - 11/12/16 9office visit -11/27/16 Dr. Diaz 10office visit - 01/15/17 11office visit - 03/09/17 12office visit - 03/30/17 13both eyes [id number] Social History Social History Type Response Substance [...]
--- OUTSIDE RECORDS SUMMARY | 2018-12-17 16:57 | XMS REPORT | Summary of Care ---
Author Author [facility] Primary [facility] Organization [facility] Address Unknown Phone Unavailable Encounter HQ Halimantr_alimary kate(FIN) [id number] Date(s): 10/07/17 - 10/08/17 [facility] [address], [address] [place] [address]- [phone] Vital Signs No data available for this [...] BID, # 270 tab, 0 Refill(s), Pharmacy: [facility] #[id number] Start Date: 10/07/17 Status: Ordered Results No data available for [...] allergic reaction. 2Result Comment: fluzone high dose [[id number]]. Migrated from OBS ; Data migrated from [employer] on 06/26/2015. 3Result Comment: fluzone (>3 yrs.) [[id number]]. Migrated from OBS ; Data migrated from [employer] on 06/26/2015. 4Result Comment: done. Migrated from OBS ; Data migrated from [employer] on 06/26/2015. Procedures Procedure Date Related Diagnosis [...] 03/09/17 7office visit - 03/30/17 8both eyes [id number] Social History Social History Type Response Substance [...]
--- OUTSIDE RECORDS SUMMARY | 2018-12-17 16:57 | XMS REPORT | Summary of Care ---
Author Author [facility] Primary [facility] Organization [facility] Address Unknown Phone Unavailable Encounter HQ Nicoletter_yumiko(FIN) [id number] Date(s): 10/21/17 - 10/21/17 [facility] [address], [address] [place] [address]- [phone] Discharge Disposition: Home or Self Care Attending Physician: David Beverly MD Vital Signs Most recent to 1 oldest [Reference Range]: Height 165.1 cm (10/21/17 1:45 PM) Temperature Oral 97.3 DegF [96.4-99.1 DegF] (10/21/17 1:45 PM) Blood Pressure 143/74 mmHg [90-140/60-90 mmHg] *HI* (10/21/17 1:45 PM) Respiratory Rate 14 BRMIN [14-20 BRMIN] (10/21/17 1:45 PM) Peripheral Pulse 81 bpm Rate [60-100 bpm] (10/21/17 1:45 PM) Weight 65 kg (10/21/17 1:45 PM) Body Mass Index 23.85 m2 (10/21/17 1:45 PM) Problem List Condition Effective Dates Status [...] Macrocytic 06/30/13 Active anemia(Confirmed)9 Macular Active edema(Confirmed) [place] - 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 2Data migrated from [employer] [...] Substance Reaction Severity Status NKDA Active Medications lisinopril 20 mg oral tablet See Instructions, TAKE 1 AND 1/2 TABLET BY MOUTH DAILY, # 135 tab, 1 Refill(s), [id number] Start Date: 10/22/17 Status: Ordered pravastatin 40 mg oral tablet See Instructions, TAKE 1 TABLET BY MOUTH AT BEDTIME, # 90 tab, 1 Refill(s), Phar ojhn paul: [facility]/pharmacy #[id number] Start Date: 10/22/17 Status: Ordered Results No data available for [...] allergic reaction. 2Result Comment: fluzone high dose [auc139]. Migrated from OBS ; Data migrated from [employer] on 06/26/2015. 3Result Comment: fluzone (>3 yrs.) [[id number]]. Migrated from OBS ; Data migrated from [...] 03/09/17 7office visit - 03/30/17 8both eyes [id number] Social History Social History Type Response Substance [...]
--- OUTSIDE RECORDS SUMMARY | 2018-12-17 16:58 | XMS REPORT ---
Author Author [facility] Address Unknown Phone Unavailable Care Team Providers Care Financial Accounting Analyst Name Role Phone Unavailable Unavailable Problems This patient has no known problems. Allergies, Adverse Reactions, Alerts This patient has no known allergies or adverse reactions. Medications This patient has no known medications. Encounters Start Date/Time End Date/Time Encounter Type Admission Type Attending Clinicians Care Facility Care Department Encounter ID 2018-12-08 10:48:00 2018-12-08 10:48:00 Emergency E [id number]
--- OUTSIDE RECORDS SUMMARY | 2018-12-17 16:58 | XMS REPORT | Summary of Care ---
Author Author [facility] Organization [facility] Address Unknown Phone Unavailable Encounter HQ Nicoletter_yumiko(FIN) [id number] Date(s): 08/11/18 - 08/11/18 [facility] [address] [facility] [address] [place] [address]- Discharge Disposition: Home or Self Care Attending Physician: David Beverly MD Vital Signs Most recent to 1 2 oldest [Reference Range]: Height 170.18 cm (08/11/18 2:24 PM) Temperature Oral 98.1 DegF [96.4-99.1 DegF] (08/11/18 2:24 PM) Blood Pressure 142/78 mmHg 160/64 mmHg [90-140/60-90 mmHg] *HI* *HI* (08/11/18 2:43 PM) (08/11/18 2:24 PM) Respiratory Rate 16 BRMIN [14-20 BRMIN] (08/11/18 2:24 PM) Peripheral Pulse 62 bpm Rate [60-100 bpm] (08/11/18 2:24 PM) Weight 66.364 kg (08/11/18 2:24 PM) Body Mass Index 22.91 m2 (08/11/18 2:24 PM) Problem List Condition Effective Dates Status [...] Macrocytic 06/30/13 Active anemia(Confirmed)9 Macular Active edema(Confirmed) [place] - Myocardial Resolved infarction(Confirmed ) Peripheral nerve [...] allergic reaction. 3Result Comment: fluzone high dose [[id number]]. Migrated from OBS ; Data migrated from [employer] on 06/26/2015. 4Result Comment: fluzone (>3 yrs.) [shc671]. Migrated from OBS ; Data migrated from [...] artery bypass grafts x 4 Completed Cataract [id number] Completed [id number] Completed Insertion of coronary artery stent Completed 1office visit - 02/11/18 2office visit - 04/01/18 3office visit - 04/29/18 4Office Visit - 08/10/17 5office visit 09/14/17 6office visit - 11/05/17 7office visit - 11/02/17 8office visit - 11/12/16 9office visit -11/27/16 Dr. Diaz 10office visit - 01/15/17 11office visit - 03/09/17 12office visit - 03/30/17 13both eyes [id number] Social History Social History Type Response Substance Abuse Use: None. Alcohol Current, Type Beer.1 Smoking Status Former smoker; Exposure to Tobacco Smoke None; Cigarette Smoking Last 365 Days No; Reg Smoking Cessation Counseling No2 entered on: 08/11/18 1socially 2age stated 8, year quit 1960 was smoking 2 packs / day Assessment and Plan No data available for this section
--- OUTSIDE RECORDS SUMMARY | 2018-12-17 16:58 | XMS REPORT | Summary of Care ---
Author Organization Unknown Address Unknown Phone Unavailable Encounter DG Ordonez(TOMEKA) [id number] Date(s): 03/11/14 - 03/11/14 [facility] [address] [place], [place] [address] - [facility] Discharge Diagnosis: Stable angina Discharge Disposition: Home Physician Attending: Yung Han MD Reason for Visit CHEST PAIN Vital Signs 1 2 3 Most recent to oldest [Reference Range]: 165.1 cm (03/11/14 1:50 PM) Height 98.7 DegF (03/11/14 1:50 PM) Temperature Oral [96.4-99.1 DegF] 117 mmHg (03/11/14 4:55 PM) 122 mmHg (03/11/14 4:09 PM) 120 mmHg (03/11/14 1:50 PM) Systolic Blood Pressure [90-140 mmHg] 58 mmHg *LOW* (03/11/14 4:55 PM) 58 mmHg *LOW* (03/11/14 4:09 PM) 56 mmHg *LOW* (03/11/14 1:50 PM) Diastolic Blood Pressure [60-90 mmHg] 23 BRMIN *HI* (03/11/14 4:55 PM) 15 BRMIN (03/11/14 4:09 PM) 18 BRMIN (03/11/14 1:50 PM) Respiratory Rate [14-20 BRMIN] 74 bpm (03/11/14 1:50 PM) Peripheral Pulse Rate [60-100 bpm] 70 kg (03/11/14 1:50 PM) Weight 25.68 m2 (03/11/14 1:50 PM) Body Mass Index Problem List Condition Effective Dates Status Health Status Informant CAD (coronary artery Resolved disease)(Confirmed) COPD(Confirmed) Resolved Diabetes(Confirmed) Resolved Diverticulosis(Confi Resolved rmed) Hypercholesterolemia Resolved (Confirmed) Hypertension(Confirm Resolved ed) [place] - 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 ) Allergies, Adverse Reactions, Alerts Substance Reaction Severity Status NKDA Active Medications Nitrostat 0.4 mg sublingual tablet 0.4 mg=1 tab, SL, Q5Min, Chest Pain, # 100 tab, 0 Refill(s) Start Date: 03/11/14 Status: Ordered Results ELECTROLYTES Most recent to 1 oldest [Reference Range]: Sodium Lvl [135-145 138 mEq/L mEq/L] (03/11/14 2:05 PM) Potassium Lvl 3.4 mEq/L [3.5-5.1 mEq/L] *LOW* (03/11/14 2:05 PM) Chloride Lvl [95-109 100 mEq/L mEq/L] (03/11/14 2:05 PM) CO2 [24-32 mEq/L] 29 mEq/L (03/11/14 2:05 PM) AGAP [10.0-20.0 12.4 mEq/L mEq/L] (03/11/14 2:05 PM) CHEM PANEL Most recent to 1 oldest [Reference Range]: Creatinine Lvl 1.0 mg/dL [0.5-1.4 mg/dL] (03/11/14 2:05 PM) eGFR 71 mL/min/1.73m2 1 *NA* (03/11/14 2:05 PM) BUN [7-22 mg/dL] 14 mg/dL (03/11/14 2:05 PM) B/C Ratio [6-25] 14 (03/11/14 2:05 PM) Glucose Lvl [70-99 116 mg/dL 2 mg/dL] *HI* (03/11/14 2:05 PM) Total Protein 7.0 g/dL [6.4-8.4 g/dL] (03/11/14 2:05 PM) Albumin Lvl [3.5-5.0 3.9 g/dL g/dL] (03/11/14 2:05 PM) Globulin [2.0-4.0 3.1 g/dL g/dL] (03/11/14 2:05 PM) A/G Ratio [0.7-1.6] 1.3 (03/11/14 2:05 PM) Calcium Lvl 9.3 mg/dL [8.5-10.5 mg/dL] (03/11/14 2:05 PM) ALT [0-65 unit/L] 19 unit/L (03/11/14 2:05 PM) AST [0-37 unit/L] 14 unit/L (03/11/14 2:05 PM) Alk Phos [39-136 40 unit/L unit/L] (03/11/14 2:05 PM) Bili Total [0.2-1.3 0.7 mg/dL mg/dL] (03/11/14 2:05 PM) 1Result Comment: The eGFR is calculated using the CKD-EPI formula. In most young, healthy individuals the eGFR will be >90 mL/min/1.73m2. The eGFR declines with age. An eGFR of 60-89 may be normal in some populations, particularly the elderly, for whom the CKD-EPI formula has not been extensively validated. Use of the eGFR is not recommended in the following populations: Individuals with unstable creatinine concentrations, including patients and those with serious co-morbid conditions. Patients with extremes in muscle mass or diet. The data above are obtained from the National Kidney Disease Education Program ( NKDEP) which additionally recommends that when the eGFR is used in patients with extremes of body mass index for purposes of drug dosing, the eGFR should be mul tiplied by the estimated BMI. 2Interpretive Data: Adult reference range values reflect the clinical guidelines of the [place] [employer]. CARDIAC ENZYMES Most recent to 1 oldest [Reference Range]: Total CK [12-191 123 unit/L unit/L] (03/11/14 2:05 PM) CK MB [0.5-3.6 2.5 ng/mL ng/mL] (03/11/14 2:05 PM) CK MB Index 2.0 [0.0-2.5] (03/11/14 2:05 PM) Troponin-I <0.02 ng/mL [0.00-0.40 ng/mL] (03/11/14 2:05 PM) BNP [<=100 pg/mL] 98 pg/mL 3 (03/11/14 2:05 PM) 3Interpretive Data: Elevated results are in line with increasing severity of congestive heart failure. Minor elevations between 100 and 300 may be seen with Myocardial Ischemia, Sodium retaining drugs, and compensated/treated heart failure. HEMATOLOGY Most recent to 1 oldest [Reference Range]: WBC [3.7-10.4 K/CMM] 6.7 K/CMM (03/11/14 2:05 PM) RBC [4.70-6.10 3.64 M/CMM M/CMM] *LOW* (03/11/14 2:05 PM) Hgb [14.0-18.0 g/dL] 12.1 g/dL *LOW* (03/11/14 2:05 PM) Hct [42.0-54.0 %] 35.8 % *LOW* (03/11/14 2:05 PM) MCV [80.0-94.0 fL] 98.3 fL *HI* (03/11/14 2:05 PM) MCH [27.0-31.0 pg] 33.2 pg *HI* (03/11/14 2:05 PM) MCHC [32.0-36.0 33.8 g/dL g/dL] (03/11/14 2:05 PM) RDW [11.5-14.5 %] 13.7 % (03/11/14 2:05 PM) Platelet [133-450 183 K/CMM K/CMM] (03/11/14 2:05 PM) MPV [7.4-10.4 fL] 8.7 fL (03/11/14 2:05 PM) Segs [45.0-75.0 %] 70.8 % (03/11/14 2:05 PM) Lymphocytes 17.1 % [20.0-40.0 %] *LOW* (03/11/14 2:05 PM) Monocytes [2.0-12.0 8.3 % %] (03/11/14 2:05 PM) Eosinophils [0.0-4.0 3.5 % %] (03/11/14 2:05 PM) Basophils [0.0-1.0 0.3 % %] (03/11/14 2:05 PM) Segs-Bands # 4.7 K/CMM [1.5-8.1 K/CMM] (03/11/14 2:05 PM) Lymphocytes # 1.1 K/CMM [1.0-5.5 K/CMM] (03/11/14 2:05 PM) Monocytes # [0.0-0.8 0.6 K/CMM K/CMM] (03/11/14 2:05 PM) Eosinophils # 0.2 K/CMM [0.0-0.5 K/CMM] (03/11/14 2:05 PM) PT [12.0-14.7 13.2 seconds seconds] (03/11/14 2:05 PM) INR [0.85-1.17] 1.00 4 (03/11/14 2:05 PM) PTT [22.9-35.8 33.2 seconds 5 seconds] (03/11/14 2:05 PM) 4Interpretive Data: RECOMMENDED RANGES FOR PROTIME INR: 2.0-3.0 for most medical and surgical thromboembolic states. 2.5-3.5 for artificial heart valves and recurrent embolism. INR SHOULD BE USED ONLY FOR PATIENTS ON STABLE ANTICOAGULANT THERAPY. 5Interpretive Data: Heparin Therapeutic Range: 57 - 92 Seconds Medications Administered During Your Visit No data available for this section Immunizations No data available for this section Procedures Procedure Type Body Site Date of Procedure Related Diagnosis CABG x 4 - Coronary artery bypass grafts x 4 Insertion of coronary artery stent Social History Social History Type Response Smoking Status Never smoker, Exposure to Tobacco Smoke None, Cigarette Smoking Last 365 Days No, Reg Smoking Cessation Counseling No
--- OUTSIDE RECORDS SUMMARY | 2018-12-17 16:58 | XMS REPORT | Summary of Care ---
Author Author [facility] Organization [facility] Address Unknown Phone Unavailable Encounter HQ Nicoletter_yumiko(FIN) [id number] Date(s): 01/21/18 - 01/22/18 [facility] [address] [facility] [address] [facility] [address] [place] [address]- Vital Signs No data available for this [...] Macrocytic 06/30/13 Active anemia(Confirmed)9 Macular Active edema(Confirmed) [place] - Myocardial Resolved infarction(Confirmed ) Peripheral nerve [...] Active Medications Nitrostat 0.4 mg sublingual tablet See Instructions, PLACE 1 TABLET UNDER THE TONUGE NEEDED, # 25 tab, 4 Refill( s), Pharmacy: [facility]/pharmacy #[id number] Start Date: 01/21/18 Status: Ordered Results No data available for [...] allergic reaction. 3Result Comment: fluzone high dose [[id number]]. Migrated from OBS ; Data migrated from [employer] on 06/26/2015. 4Result Comment: fluzone (>3 yrs.) [cnb421]. Migrated from OBS ; Data migrated from [employer] on 06/26/2015. 5Result Comment: done. Migrated from OBS ; Data migrated from [employer] on 06/26/2015. Procedures Procedure Date Related Diagnosis Body Site Status Diabetic retinal eye exam1, 2, 3, 4, 5, 6, 7 07/06/17 Completed Diabetic retinopathy screening8, 9, 10, 11, 06/23/16 Completed 12 Diabetic foot examination 06/27/15 Completed Colonoscopy 09/24/10 Completed Appendectomy Completed CABG x 4 - Coronary artery bypass grafts x 4 Completed Cataract Completed [id number] Completed Insertion of coronary artery stent Completed 1office visit - 02/11/18 2office visit - 04/01/18 3office visit - 04/29/18 4Office Visit - 08/10/17 5office visit 09/14/17 6office visit - 11/05/17 7office visit - 11/02/17 8office visit - 11/12/16 9office visit -11/27/16 Dr. Diaz 10office visit - 01/15/17 11office visit - 03/09/17 12office visit - 03/30/17 13both eyes [id number] Social History Social History Type Response Substance [...]
[2018-12-17] MEDS ORDERED: MECLIZINE HCL 12.5 MG TAB PO ONE (17:15)
[2018-12-17 17:23] LABS: BASOPHILS % 0.1 % (0.0-1.0); EOSINOPHILS # (AUTO) 0.2 (0.0-0.4); EOSINOPHILS % 2.8 % (0.0-6.0); HEMATOCRIT 35.1 % (38.2-49.6); HEMOGLOBIN 11.4 g/dL (14.0-18.0); LYMPHOCYTES # (AUTO) 0.9 (1.0-3.2); LYMPHOCYTES % 13.7 % (18.0-39.1); MEAN CORPUSCULAR HEMOGLOBIN 32.6 pg (28-32); MEAN CORPUSCULAR HGB CONC 32.5 g/dL (31-35); MEAN CORPUSCULAR VOLUME 100.3 fL (81-99); MONOCYTES # (AUTO) 0.5 (0.2-0.8); MONOCYTES % 7.9 % (4.4-11.3); NEUTROPHILS # (AUTO) 5.2 (2.1-6.9); NEUTROPHILS % 75.1 % (38.7-80.0); PLATELET COUNT 167 x10e3/uL (140-360); RED CELL DISTRIBUTION WIDTH 13.6 % (11.7-14.4)
[2018-12-17 17:28] LABS: BILIRUBIN,URINE NEGATIVE (NEGATIVE); CLARITY,URINE SL CLOUDY (CLEAR); COLOR,URINE YELLOW (YELLOW); KETONES,URINE NEGATIVE (NEGATIVE); LEUKOCYTE ESTERASE ,URINE NEGATIVE (NEGATIVE); NITRITE,URINE NEGATIVE (NEGATIVE); PROTEIN,URINE DIPSTICK NEGATIVE (NEGATIVE); URINE UROBILINOGEN 0.2 mg/dL (0.2 - 1)
[2018-12-17 17:42] LABS: BACTERIA,URINE FEW /HPF; MUCUS,URINE MODERATE (RARE); RBC,URINE 0-5 /HPF (0-5)
[2018-12-17 17:44] LABS: ALANINE AMINOTRANSFERASE 26 IU/L (0-55); ALBUMIN 4.2 g/dL (3.5-5.0); ALBUMIN/GLOBULIN RATIO 1.4 (0.8-2.0); ALKALINE PHOSPHATASE 47 IU/L (40-150); ANION GAP 14.8 mmol/L (8-16); BLOOD UREA NITROGEN 16 mg/dL (7-26); BUN/CREATININE RATIO 16 (6-25); CALCIUM 10.3 mg/dL (8.4-10.2); CARBON DIOXIDE 28 mmol/L (22-29); CHLORIDE 104 mmol/L (98-107); CREATINE KINASE 92 IU/L (30-200); CREATININE, SERUM 1.03 mg/dL (0.72-1.25); EST GLOMERULAR FILTRATION RATE > 60 ML/MIN (60-); GLUCOSE 113 mg/dL (74-118); POTASSIUM 3.8 mmol/L (3.5-5.1); SODIUM 143 mmol/L (136-145)
--- NOTE | 2018-12-17 17:51 | Diagnostic Imaging Report ---
EXAMINATION: CHEST SINGLE (PORTABLE) INDICATION: ^dizzy ^[id number] ^[id number] ^Y COMPARISON: None FINDINGS: AP view TUBES and LINES: None. LUNGS: Lungs are well inflated. Mild bilateral central pulmonary vascular congestion. Left upper lobe calcified granuloma. No lobar consolidations. PLEURA: No pleural effusion or pneumothorax. Ill-defined oval-shaped calcifications overlying the left upper chest suggestive of calcified pleural plaques. HEART AND MEDIASTINUM: Mild enlargement of the cardiac silhouette. Moderate calcifications of the aortic arch. BONES AND SOFT TISSUES: Intact median sternotomy wires. No acute osseous lesion. Soft tissues are unremarkable. UPPER ABDOMEN: No free air under the diaphragm. IMPRESSION: Mild cardiomegaly with associated central pulmonary vascular congestion. Few calcifications in the left upper chest are suggestive of a combination of calcified granuloma and calcified pleural plaques. Signed by: Dr. Amanda Chen M.D. on 12/17/2018 5:48 PM
--- NOTE | 2018-12-17 18:09 | Diagnostic Imaging Report ---
History:Dizziness, left eye blurry Comparison studies:None Technique: Axial images were obtained from the skull base to the vertex. Coronal and sagittal images reconstructed from the axial data. Intravenous contrast: None Dose modulation, iterative reconstruction, and/or weight based adjustment of the mA/kV was utilized to reduce the radiation dose to as low as reasonably achievable. Findings: Scalp/skull: No abnormalities. Extra-axial spaces: No masses. No fluid collections. Brain sulci: Mildly prominent. Ventricles: Mild compensatory dilatation. No hydrocephalus. Parenchyma: Few hypodensities in the supratentorial white matter are small vessel ischemic changes. No masses, hemorrhage, acute or chronic cortical vascular insults. Sellar/suprasellar region: No abnormalities. Craniocervical junction: Patent foramen magnum. No Chiari one malformation. Incidental findings: Atherosclerotic calcifications in the carotid siphons and vertebral arteries . Under pneumatization and partial opacification of the bilateral mastoid air cells, nonspecific. Impression: No acute abnormalities. Chronic findings: 1. Mild generalized volume loss. 2. Mild supratentorial white matter small vessel ischemic changes. 3. Nonspecific mild inflammatory changes of the mastoid air cells. Signed by: DR Rajiv Varma M.D. on 12/17/2018 6:05 PM
== END 2018-12-17 19:50 | disposition home or self-care (01) ==
LOC: ER 16:54
DX: H81.13 Benign paroxysmal vertigo, bilateral (principal); I10 Essential (primary) hypertension; I25.10 Atherosclerotic heart disease of native coronary artery without angina pectoris; Z95.1 Presence of aortocoronary bypass graft
CPT/HCPCS: 36415; 70450; 71045; 80053; 81001; 82550; 82553; 84484; 85025; 93005; 99284; J8597

== ENCOUNTER 2021-04-14 14:17 | Emergency (ER) | payer MEDICARE, OTHER ==
[~2021-04-14] VITALS: Ht 165.1 cm; Wt 63.5 kg
[2021-04-14] MEDS ORDERED: TETANUS/DIPHTHERIA TOX ADULT 0.5 ML SYR IM ONE (14:30)
== END 2021-04-14 16:09 | disposition home or self-care (01) ==
LOC: ER 14:27
DX: S01.112A Laceration without foreign body of left eyelid and periocular area, initial encounter (principal); W01.198A Fall on same level from slipping, tripping and stumbling with subsequent striking against other object, initial encounter; Y93.01 Activity, walking, marching and hiking; Y92.008 Other place in unspecified non-institutional (private) residence as the place of occurrence of the external cause; I10 Essential (primary) hypertension
CPT/HCPCS: 70450; 70486; 72125; 90471; 90714; 99283